=== PATIENT | male | born 1950 | race Caucasian/White ===

== ENCOUNTER 2018-04-21 07:00 | Day surgery (SDC) | payer OTHER ==
[~2018-04-21] VITALS: Ht 180.3 cm; Wt 95.3 kg
[~2018-04-21 07:00] MED LIST: OMEGA-3100 MG PO; PREVACID30 MG PO
== END 2018-04-22 08:00 | disposition home or self-care (01) ==
LOC: CIR.AMB 07:00 → SURH 11:30 → EDSTATUS 11:30 → SURH 13:45 → O/R 16:55 → SURG 16:55 → CIR.AMB 04-22 08:00 → O/R 04-22 13:52 → SURG 04-22 13:52
DX: C20 Malignant neoplasm of rectum (principal); I10 Essential (primary) hypertension; D37.5 Neoplasm of uncertain behavior of rectum

== ENCOUNTER 2021-05-16 05:25 | Day surgery (SDC) | payer OTHER | END 2021-05-16 09:30 | disposition home or self-care (01) | LOC: AMB-ENDOS 05:25 | PROVIDERS: ATTEND Surgery | DX: D12.4 Benign neoplasm of descending colon (principal); Z20.822 Contact with and (suspected) exposure to COVID-19 ==

== ENCOUNTER 2022-08-20 07:00 | Inpatient (IN) | payer OTHER ==
[~2022-08-20] VITALS: Ht 180.3 cm; Wt 90.7 kg
[2022-08-27] MEDS ORDERED: LATANOPROST2.5 ML (08:58)
[2022-08-27] MEDS ORDERED: OMEPRAZOLE20 MG (08:58)
[2022-08-27] MEDS ORDERED: LANSOPRAZOLE30 MG (08:58)
== END 2022-08-28 18:19 | DRG 470 ==
LOC: O/R 08-26 05:10 → SURG 08-26 05:10
PROVIDERS: ADMIT Orthopaedic Surgery; ATTEND Orthopaedic Surgery
PROC: 0SRC0J9 Replacement of Right Knee Joint with Synthetic Substitute, Cemented, Open Approach (ICD-10-PCS; principal; 2022-08-26 13:00)
DX: M17.11 Unilateral primary osteoarthritis, right knee (principal); D62 Acute posthemorrhagic anemia; M22.11 Recurrent subluxation of patella, right knee; I10 Essential (primary) hypertension; Z96.651 Presence of right artificial knee joint; Z74.01 Bed confinement status